=== PATIENT | male | born 1950 | race Caucasian/White ===

== ENCOUNTER 2020-03-09 14:14 | Emergency (ER) | payer OTHER, MEDICARE ==
[~2020-03-09] VITALS: Ht 167.6 cm; Wt 63.5 kg
[2020-03-09 15:29] VITALS: BP 132/70
== END 2020-03-09 15:29 | disposition home or self-care (01) ==
LOC: M.ERS 14:14
DX: S51.811A Laceration without foreign body of right forearm, initial encounter (principal); Z90.89 Acquired absence of other organs; W26.8XXA Contact with other sharp object(s), not elsewhere classified, initial encounter; Y93.89 Activity, other specified; Y92.89 Other specified places as the place of occurrence of the external cause; Y99.8 Other external cause status

== ENCOUNTER 2020-03-20 18:04 | Emergency (ER) | payer MEDICARE ==
[~2020-03-20] VITALS: Ht 172.7 cm; Wt 72.6 kg
[2020-03-20 18:11] VITALS: BP 153/70
== END 2020-03-20 18:49 | disposition home or self-care (01) ==
LOC: M.ERS 18:04
DX: S51.811D Laceration without foreign body of right forearm, subsequent encounter (principal); Z90.49 Acquired absence of other specified parts of digestive tract; X58.XXXD Exposure to other specified factors, subsequent encounter

== ENCOUNTER 2020-09-15 14:21 | Emergency (ER) | payer MEDICARE ==
[~2020-09-15] VITALS: Ht 172.7 cm; Wt 72.6 kg
[2020-09-15] MEDS ORDERED: KEFLEX500 M1 PO (15:51)
[2020-09-15] MEDS ORDERED: NORCO 5-325 TA1 EAC2 PO (15:51)
[2020-09-15 16:07] VITALS: BP 148/72
== END 2020-09-15 16:08 | disposition home or self-care (01) ==
LOC: M.ERS 14:21
DX: S62.611A Displaced fracture of proximal phalanx of left index finger, initial encounter for closed fracture (principal); S61.213A Laceration without foreign body of left middle finger without damage to nail, initial encounter; S61.215A Laceration without foreign body of left ring finger without damage to nail, initial encounter; Z90.89 Acquired absence of other organs; W22.8XXA Striking against or struck by other objects, initial encounter; Y93.89 Activity, other specified; Y92.89 Other specified places as the place of occurrence of the external cause; Y99.8 Other external cause status